=== PATIENT | male | born 1935 | race Caucasian/White ===

== ENCOUNTER 2021-06-16 20:31 | Observation (INO) | payer MEDICARE ==
[2021-06-16 21:51] LABS: Basophils % (A) 0 %; Eosinophils # (A) 0.3 k/uL (0-0.7); Eosinophils % (A) 4 %; HCT 33.9 % (39.0-53.0); HGB 11.5 gm/dL (13.0-17.5); Lymphocytes % (A) 14 %; Mean Platelet Volume 7.7; Monocytes # (A) 0.4 k/uL (0-1.0); Monocytes % (A) 6 %; Neutrophils # (A) 5.1 k/uL (1.3-7.7); Neutrophils % (A) 74 %; Platelet Count 292 k/uL (150-450); RBC 3.73 m/uL (4.30-5.90); RDW 13.5 % (11.5-15.5); WBC 6.9 k/uL (3.8-10.6)
[2021-06-16 22:02] LABS: Albumin 3.9 g/dL (3.5-5.0); Calcium 9.1 mg/dL (8.4-10.2); Magnesium 1.9 mg/dL (1.6-2.3); Total Bilirubin 0.6 mg/dL (0.2-1.3); Total Protein 6.6 g/dL (6.3-8.2)
[2021-06-16] MEDS ORDERED: DIAZEPAM 5 MG/ML 2 ML INJ IVP STA (22:07)
[2021-06-16] MEDS ORDERED: ACETAMINOPHEN TAB 500 MG TAB PO STA (22:07)
[2021-06-16 22:29] LABS: Partial Thromboplastin Time 26.6 sec (22.0-30.0); Prothrombin Time 10.5 sec (9.0-12.0)
--- NOTE | 2021-06-16 23:01 | XR ---
EXAMINATION TYPE: XR chest 2V DATE OF EXAM: 06/16/2021 COMPARISON: NONE HISTORY: Chest pain TECHNIQUE: 2 views FINDINGS: Heart and mediastinum are normal. Lungs are clear. Diaphragm is normal. Bony thorax is norm al. Thoracic aorta is atheromatous. IMPRESSION: No active cardiopulmonary disease. Normal heart.
[2021-06-16] MEDS ORDERED: NALOXONE 0.4 MG/ML 1 ML VIAL IV PRN (23:30)
--- NOTE | 2021-06-16 23:30 | ED ---
Chest Pain HPI - General Chief Complaint: Chest Pain Stated Complaint: Chest pain Source: patient, EMS Mode of arrival: EMS Limitations: no limitations - History of Present Illness Initial Comments: 86-year-old male presents emergency Department with reported chest discomfort. States that he recently saw his primary care physician within the past day as he was concerned about palpitations. He did find that his heart rate was high around 110 and his primary care doctor started him on propranolol 60 mg. Patient started taking the medications yesterday. He then began having bradycardia with heart rates in the 50s. Patient felt as if she was having an irregular heart rhythm and therefore called EMS. They found the patient to be in a bigeminy rhythm. He denies previous history of dysrhythmias. States that he had a heart cath approximate 5 years ago at [facility] and was found to have approximately 30% occlusion. He denies ripping or tearing satiety was back. No fevers, chills or cough. No abdominal pain. 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 - Related Data Home Medications Medication Instructions Recorded Confirmed Acetaminophen [Tylenol] 500 mg PO Q4H PRN 06/16/21 06/16/21 Albuterol Inhaler [Ventolin Hfa 2 puff INHALATION RT-QID 06/16/21 06/16/21 Inhaler] Ascorbic Acid [Vitamin C] 500 mg PO DAILY@79906/16/21 06/16/21 Baclofen 10 mg PO QID PRN 06/16/21 06/16/21 Bimatoprost [Lumigan .01% Ophth 1 drop BOTH EYES DAILY@79906/16/21 06/16/21 Soln] Ciprofloxacin HCl [Ciloxan 0.3%] 2 drops LEFT EAR BID@799,199906/16/21 06/16/21 Citalopram Hydrobromide 10 mg PO DAILY@79906/16/21 06/16/21 Clindamycin Phosphate 1 applic TOPICAL BID PRN 06/16/21 06/16/21 Diltiazem HCl 120 mg PO DAILY@79906/16/21 06/16/21 Docusate Sodium [Dok] 100 mg PO DAILY@79906/16/21 06/16/21 Doxycycline Hyclate 100 mg PO BID@06/16/21 06/16/21 Ferrous Sulfate [Feosol] 325 mg PO DAILY@0800 06/16/21 06/16/21 Levothyroxine Sodium [Synthroid] 50 mcg PO DAILY@79906/16/21 06/16/21 Losartan Potassium 50 mg PO BID@0800,199906/16/21 06/16/21 Magnesium Oxide 200 mg PO DAILY@0806/16/21 06/16/21 Meclizine HCl 25 mg PO DAILY PRN 06/16/21 06/16/21 Multivitamins, Thera [Multivitamin 1 tab PO DAILY@0806/16/21 06/16/21 (formulary)] Nystatin 100,000 Unit/gm Powd 1 applic TOPICAL BID PRN 06/16/21 06/16/21 [Mycostatin Powder] Omeprazole 20 mg PO DAILY@0806/16/21 06/16/21 Propranolol HCl [Propranolol HCl 60 mg PO DAILY@79906/16/21 06/16/21 ER] Sennosides/Docusate Sodium [Senna 2 tab PO DAILY PRN 06/16/21 06/16/21 Plus 8.6-50 mg Tablet] Tiotropium 2.5 Mcg/Puff [Spiriva 2 puff INHALATION RT-DAILY@79906/16/21 06/16/21 Respimat 2.5 Mcg] Allergies Allergy/AdvReac Type Severity Reaction Status Date / Time codeine AdvReac Itching Verified 06/16/21 23:23 morphine AdvReac Itching Verified 06/16/21 23:23 Review of Systems ROS Statement: Those systems with pertinent positive or pertinent negative responses have been documented in the HPI. ROS Other: All systems not noted in ROS Statement are negative. EKG Findings - EKG Comments: EKG Findings:: EKG done at 2043 demonstrates a normal sinus rhythm with a rate of 68. NV interval 176. QRS 85. QTC 382. No acute ST segment elevations or depressions. Repeat EKG at 2052 demonstrates sinus rhythm with frequent PVCs in a bigeminy rhythm. No acute ST segment elevation. No signs of high degree block. Past Medical History History of Any Multi-Drug Resistant Organisms: None Reported Additional Past Surgical History / Comment(s): Spine fusion Smoking Status: Former smoker Past Alcohol Use History: None Reported Past Drug Use History: None Reported General Exam Limitations: no limitations Course Vital Signs 06/16/21 06/16/21 06/16/21 20:33 22:41 23:41 Temperature 98.1 F Pulse Rate 48 L 67 69 Respiratory 18 18 18 Rate Blood Pressure 179/68 137/75 116/65 O2 Sat by Pulse 97 97 98 Oximetry Chest Pain MDM - MDM Upon arrival patient was placed into room 4. He is placed on continuous pulse ox and cardiac monitoring. IV access established laboratory studies were conducted. Troponin is negative. Chest x-ray demonstrates no acute process. Patient does have a persistent heart rate in the 60s which demonstrates a bigeminy rhythm. Did recommend admission for cardiology consultation for which the patient did agree to. Spoke with Dr. Brandon who agreed to admit the patient. He is currently awaiting a bed on the floor Disposition Clinical Impression: Chest pain, Bigeminal rhythm Disposition: ADMITTED IP TO THIS HOSP Condition: Stable Is patient prescribed a controlled substance at d/c from ED?: No Decision to Admit Reason: Admit from EC Decision Date: 06/16/21 Decision Time: 23:30
[2021-06-17] MEDS ORDERED: BACLOFEN 10 MG TAB PO STA (00:20)
[2021-06-17] MEDS ORDERED: HYDROcodone/APAP 7.5-325MG 1 EACH TAB PO ONE (00:48)
[2021-06-17] MEDS: SODIUM CHLORIDE 0.9% 1,000 ML IV SCH ×2 (01:21→21:05)
[2021-06-17] MEDS ORDERED: NON FORMULARY DRUG (Clindamycin Phosphate [Clindamycin Phosphate] 30 ML Solution) TOPICAL PRN (02:29)
[2021-06-17] MEDS ORDERED: MECLIZINE 25 MG TAB PO PRN (02:29)
[2021-06-17] MEDS ORDERED: SENNOSIDES-DOCUSATE SODIUM 1 EACH TAB PO PRN (02:29)
[2021-06-17 03:46] LABS: Basophils % (A) 0 %; Eosinophils # (A) 0.3 k/uL (0-0.7); Eosinophils % (A) 5 %; HCT 32.2 % (39.0-53.0); HGB 10.7 gm/dL (13.0-17.5); Lymphocytes # (A) 1.1 k/uL (1.0-4.8); Lymphocytes % (A) 19 %; MCH 30.5 pg (25.0-35.0); MCHC 33.2 g/dL (31.0-37.0); MCV 91.9 fL (80.0-100.0); Mean Platelet Volume 8.4; Monocytes # (A) 0.5 k/uL (0-1.0); Monocytes % (A) 7 %; Neutrophils # (A) 4.1 k/uL (1.3-7.7); Neutrophils % (A) 66 %; Platelet Count 251 k/uL (150-450); WBC 6.2 k/uL (3.8-10.6)
[2021-06-17 04:07] LABS: Calcium 8.8 mg/dL (8.4-10.2); Potassium 4.7 mmol/L (3.5-5.1)
[2021-06-17] MEDS: PANTOPRAZOLE 40 MG TABLET PO SCH (06:19)
[2021-06-17] MEDS: LEVOTHYROXINE 50 MCG TAB PO SCH (06:19)
[2021-06-17] MEDS: ALBUTEROL NEBULIZED 2.5 MG/3 ML INHALATION SCH ×4 (08:04→19:50)
[2021-06-17] MEDS: LOSARTAN 50 MG TAB PO SCH ×2 (08:04→19:30)
[2021-06-17] MEDS: ASCORBIC ACID 500 MG TAB PO SCH (08:04)
[2021-06-17] MEDS: DOCUSATE 100 MG CAP PO SCH (08:04)
[2021-06-17] MEDS: IPRATROPIUM 0.5 MG/2.5 ML NEBU INHALATION SCH ×4 (08:04→19:51)
[2021-06-17] MEDS: MULTIVITAMINS, THERA 1 EACH TAB PO SCH (08:05)
[2021-06-17] MEDS: BACLOFEN 10 MG TAB PO PRN ×2 (08:05→18:23)
[2021-06-17] MEDS: LATANOPROST 0.005% OPHTH DROPS 2.5 ML BTL BOTH EYES SCH (08:06)
[2021-06-17] MEDS: CIPROFLOXACIN 0.3% OPHTH SOLN 5 ML BTL LEFT EAR SCH ×2 (08:06→19:31)
[2021-06-17] MEDS ORDERED: DILTIAZEM ORAL 60 MG TAB PO SCH (09:00)
--- NOTE | 2021-06-17 09:40 | ECHOF ---
Referral Reason:LV function MEASUREMENTS -------- HEIGHT: 172.7 cm WEIGHT: 77.1 kg BP: IVSd: 0.9 cm (0.6 - 1.1) LVIDd: 4.1 cm (3.9 - 5.3) LVPWd: 1.1 cm (0.6 - 1.1) IVSs: 1.5 cm LVIDs: 2.4 cm LVPWs: 1.7 cm Ao Diam: 3.5 cm (2.0 - 3.7) AV Cusp: 1.5 cm (1.5 - 2.6) LA Diam: 3.6 cm (2.7 - 3.8) MV EXCURSION: 14.230 mm (> 18.000) MV EF SLOPE: 74 mm/s (70 - 150) EPSS: 1.7 cm MV E Ulysses: 0.74 m/s MV DecT: 354 ms MV A Ulysses: 0.89 m/s MV E/A Ratio: 0.83 RAP: 15.00 mmHg RVSP: 28.74 mmHg FINDINGS -------- This was a technically adequate study. The left ventricular size is normal. Left ventricular wall thickness is normal. Overall left vent ricular systolic function is normal with, an EF between 55 - 60 %. The right ventricle is normal in size. The left atrial size is normal. The right atrial size is normal. Aortic valve is trileaflet and is mildly thickened. The mitral valve is normal. The mitral valve leaflets are mildly thickened. Mild mitral annular c alcification present. There is trace mitral regurgitation. The tricuspid valve appears structurally normal. Trace tricuspid regurgitation present. Right kay tricular systolic pressure is normal at < 35 mmHg. The pulmonic valve was not well visualized. The aortic root size is normal. The inferior vena cava is mildly dilated. There is no pericardial effusion. CONCLUSIONS -------- 1. The left ventricular size is normal. 2. Left ventricular wall thickness is normal. 3. Overall left ventricular systolic function is normal with, an EF between 55 - 60 %. 4. Aortic valve is trileaflet and is mildly thickened. 5. The mitral valve leaflets are mildly thickened. 6. Mild mitral annular calcification present. 7. There is trace mitral regurgitation. 8. Trace tricuspid regurgitation present. 9. The inferior vena cava is mildly dilated. 10. There is no pericardial effusion. PLOW HOLDER: Angeline Bledsoe RDCS
--- NOTE | 2021-06-17 10:28 | P.CRDCN ---
History of Present Illness Consult date: 06/17/21 History of present illness: HISTORY OF PRESENT ILLNESS: This is a 86-year-old male with a past medical history significant for hypothyroidism, hypertension, and GERD. Patient does not follow with a test developer. We have been asked to see the patient in consultation for palpitations. Patient examined at the bedside. Patient states he has been h aving some palpitations recently. He states he went to see his primary care doctor 2 days ago and was started on Inderal yesterday. He reports yesterday he felt very weak and dizzy and came to the hospital. Patient was found to be sinus mechanism with PVCs and what appeared to be bigeminy. She denies having any chest pain or pressure. He denies any shortness of breath. Telemetry this morning reveals sinus mechanism. Patient reports having a cardiac catheterization about 45 years ago and was found to have a 30% lesion of one of his vessels, exact details are unknown. * EKG reveals sinus mechanism with frequent PVCs * Chest xray negative for acute process * Laboratory data: WBC 6.2. Hemoglobin 10.7. Platelet count 251. Sodium 129. Potassium 4.7. BUN 33. Creatinine 1.36. Troponin negative 3 * Current home cardiac medications include propanolol 60 mg daily, losartan 50 mg twice a day, diltiazem 120 mg daily * Echocardiogram completed revealing ejection fraction 55-60%, trace MR, trace TR REVIEW OF SYSTEMS: At the time of my exam: CONSTITUTIONAL: Denies fever or chills. HEENT: Denies blurred vision, vision changes, or eye pain. Denies hemoptysis CARDIOVASCULAR: Denies chest pain. Denies orthopnea. Denies PND. Denies palpitations RESPIRATORY: Denies shortness of breath. GASTROINTESTINAL: Denies abdominal pain. Denies nausea or vomiting. HEMATOLOGIC: Denies bleeding disorders. GENITOURINARY: Denies any blood in urine. SKIN: Denies pruitis. Denies rash. PHYSICAL EXAM: VITAL SIGNS: Reviewed. GENERAL: Well-developed in no acute distress. HEENT: Head is normocephalic. Pupils are equal, round. Sclerae anicteric. Mucous membranes of the mouth are moist. Neck supple. No JVD or thyromegaly LUNGS: Respirations even and unlabored. Lungs essentially clear to auscultation bilaterally. HEART: Regular rate and rhythm. S1 and S2 heard. ABDOMEN: Soft. Nondistended. Nontender. EXTREMITIES: Normal range of motion. No clubbing or cyanosis. Peripheral pulses intact. No lower extremity edema NEUROLOGIC: Awake and alert. Oriented x 3. ASSESSMENT: Chest pain, ruled out, patient denies having chest pain Palpitations Frequent PVCs and bigeminy Nonobstructive coronary artery disease Hypertension Hypothyroidism GERD PLAN: 2D echo obtained and reviewed DC Cardizem and propanolol Begin metoprolol succinate 25 mg starting tomorrow morning Continue to monitor patient on telemetry overnight and possible discharge tomorrow Nurse practitioner note has been reviewed by physician. Signing provider agrees with the documented findings, assessment, and plan of care. Past Medical History History of Any Multi-Drug Resistant Organisms: None Reported Additional Past Surgical History / Comment(s): Spine fusion Smoking Status: Former smoker Past Alcohol Use History: None Reported Past Drug Use History: None Reported Medications and Allergies Home Medications Medication Instructions Recorded Confirmed Type Acetaminophen [Tylenol] 500 mg PO Q4H PRN 06/16/21 06/16/21 History Albuterol Inhaler [Ventolin Hfa 2 puff INHALATION RT-QID 06/16/21 06/16/21 Histo ry Inhaler] Ascorbic Acid [Vitamin C] 500 mg PO DAILY@0806/16/21 06/16/21 History Baclofen 10 mg PO QID PRN 06/16/21 06/16/21 History Bimatoprost [Lumigan .01% Ophth 1 drop BOTH EYES DAILY@0800 06/16/21 06/16/21 History Soln] Ciprofloxacin HCl [Ciloxan 0.3%] 2 drops LEFT EAR BID@06/16/21 06/16/21 History Citalopram Hydrobromide 10 mg PO DAILY@0800 06/16/21 06/16/21 History Clindamycin Phosphate 1 applic TOPICAL BID PRN 06/16/21 06/16/21 History Diltiazem HCl 120 mg PO DAILY@0806/16/21 06/16/21 History Docusate Sodium [Dok] 100 mg PO DAILY@0800 06/16/21 06/16/21 History Doxycycline Hyclate 100 mg PO BID@06/16/21 06/16/21 History Ferrous Sulfate [Feosol] 325 mg PO DAILY@0800 06/16/21 06/16/21 History Levothyroxine Sodium [Synthroid] 50 mcg PO DAILY@0806/16/21 06/16/21 History Losartan Potassium 50 mg PO BID@06/16/21 06/16/21 History Magnesium Oxide 200 mg PO DAILY@0800 06/16/21 06/16/21 History Meclizine HCl 25 mg PO DAILY PRN 06/16/21 06/16/21 History Multivitamins, Thera [Multivitamin 1 tab PO DAILY@0806/16/21 06/16/21 History (formulary)] Nystatin 100,000 Unit/gm Powd 1 applic TOPICAL BID PRN 06/16/21 06/16/21 History [Mycostatin Powder] Omeprazole 20 mg PO DAILY@0806/16/21 06/16/21 History Propranolol HCl [Propranolol HCl 60 mg PO DAILY@0806/16/21 06/16/21 History ER] Sennosides/Docusate Sodium [Senna 2 tab PO DAILY PRN 06/16/21 06/16/21 History Plus 8.6-50 mg Tablet] Tiotropium 2.5 Mcg/Puff [Spiriva 2 puff INHALATION RT-DAILY@79906/16/21 06/16/21 History Respimat 2.5 Mcg] Allergies Allergy/AdvReac Type Severity Reaction Status Date / Time codeine AdvReac Itching Verified 06/16/21 23:23 morphine AdvReac Itching Verified 06/16/21 23:23 Physical Exam Vitals: Vital Signs Temp Pulse Pulse Resp BP BP Pulse Ox 06/17/21 08:26 64 06/17/21 08:05 64 06/17/21 07:00 97.8 F 60 18 165/71 98 06/17/21 06:17 53 L 16 94/57 99 06/17/21 03:20 70 18 122/77 96 06/16/21 23:41 69 18 116/65 98 06/16/21 22:41 67 18 137/75 97 06/16/21 20:33 98.1 F 48 L 18 179/68 97 Intake and Output 06/16/21 06/17/21 06/17/21 22:59 06:59 14:59 Other: Weight 77.111 kg Results 06/17/21 03:20 06/17/21 03:20 Cardiac Enzymes 06/16/21 06/16/21 06/17/21 Range/Units 21:40 21:40 00:49 AST 25 (17-59) U/L Troponin I <0.012 <0.012 (0.000-0.034) ng/mL 06/17/21 Range/Units 03:20 AST (17-59) U/L Troponin I <0.012 (0.000-0.034) ng/mL Coagulation 06/16/21 Range/Units 21:40 PT 10.5 (9.0-12.0) sec APTT 26.6 (22.0-30.0) sec CBC 06/16/21 06/17/21 Range/Units 21:40 03:20 WBC 6.9 6.2 (3.8-10.6) k/uL RBC 3.73 L 3.50 L (4.30-5.90) m/uL Hgb 11.5 L 10.7 L (13.0-17.5) gm/dL Hct 33.9 L 32.2 L (39.0-53.0) % Plt Count 292 251 (150-450) k/uL Comprehensive Metabolic Panel 06/16/21 06/17/21 Range/Units 21:40 03:20 Sodium 130 L 129 L (137-145) mmol/L Potassium 5.0 4.7 (3.5-5.1) mmol/L Chloride 99 99 (98-107) mmol/L Carbon Dioxide 22 23 (22-30) mmol/L BUN 32 H 33 H (9-20) mg/dL Creatinine 1.29 H 1.36 H (0.66-1.25) mg/dL Glucose 113 H 109 H (74-99) mg/dL Calcium 9.1 8.8 (8.4-10.2) mg/dL AST 25 (17-59) U/L ALT 19 (4-49) U/L Alkaline Phosphatase 57 (38-126) U/L Total Protein 6.6 (6.3-8.2) g/dL Albumin 3.9 (3.5-5.0) g/dL Current Medications Generic Name Dose Route Start Last Admin Trade Name Freq PRN Reason Stop Dose Admin Acetaminophen 500 mg 06/17/21 02:29 Acetaminophen Tab 500 Mg Tab PO Q4H PRN Pain Albuterol Sulfate 2.5 mg 06/17/21 08:00 06/17/21 08:04 Albuterol Nebulized 2.5 Mg/3 Ml INHALATION 2.5 mg RT-QID IRVIN Administration Ascorbic Acid 500 mg 06/17/21 09:00 06/17/21 08:04 Ascorbic Acid 500 Mg Tab PO 500 mg DAILY IRVIN Administration Baclofen 10 mg 06/17/21 02:29 06/17/21 08:05 Baclofen 10 Mg Tab PO 10 mg QID PRN Administration Muscle Pain Ciprofloxacin 2 drops 06/17/21 09:00 06/17/21 08:06 Ciprofloxacin 0.3% Ophth Soln 5 Ml Btl LEFT EAR 2 drops BID [facility] Administration Citalopram Hydrobromide 10 mg 06/17/21 09:00 Citalopram Hydrobromide 10 Mg Tab PO DAILY [facility] Docusate Sodium 100 mg 06/17/21 09:00 06/17/21 08:04 Docusate 100 Mg Cap PO Not Given DAILY [facility] Doxycycline Monohydrate 100 mg 06/17/21 09:00 Doxycycline 100 Mg Cap PO 06/23/21 21:01 BID [facility] Ferrous Sulfate 325 mg 06/17/21 11:00 Ferrous Sulfate 325 Mg Tab PO DAILY@1100 [facility] Sodium Chloride 1,000 mls @ 50 mls/hr 06/16/21 23:45 06/17/21 01:21 Saline 0.9% IV 50 mls/hr .Q20H IRVIN Administration Ipratropium [place] 0.5 mg 06/17/21 08:00 06/17/21 08:04 Ipratropium 0.5 Mg/2.5 Ml Nebu INHALATION 0.5 mg RT-QID IRVIN Administration Latanoprost 1 drops 06/17/21 09:00 06/17/21 08:06 Latanoprost 0.005% Ophth Drops 2.5 Ml Btl BOTH EYES 1 drops DAILY IRVIN Administration Levothyroxine Sodium 50 mcg 06/17/21 06:30 06/17/21 06:19 Levothyroxine 50 Mcg Tab PO 50 mcg DAILY@0630 [facility] Administration Losartan Potassium 50 mg 06/17/21 09:00 06/17/21 08:04 Losartan 50 Mg Tab PO 50 mg BID IRVIN Administration Magnesium Oxide 200 mg 06/17/21 11:00 Magnesium Oxide 400 Mg Tab PO DAILY@1100 [facility] Meclizine HCl 25 mg 06/17/21 02:29 Meclizine 25 Mg Tab PO DAILY PRN DIZZINESS Metoprolol Succinate 25 mg 06/18/21 09:00 Metoprolol Succinate (Er) 25 Mg Tab.Er.24h PO DAILY [facility] Multivitamins 1 each 06/17/21 09:00 06/17/21 08:05 Multivitamins, Thera 1 Each Tab PO 1 each DAILY [facility] Administration Naloxone HCl 0.2 mg 06/16/21 23:30 Naloxone 0.4 Mg/Ml 1 Ml Vial IV Q2M PRN Opioid Reversal Non-Formulary Medication 1 applic 06/17/21 02:29 Clindamycin Phosphate [Clindamycin Phosphate] TOPICAL BID PRN Skin Irritation Pantoprazole Sodium 40 mg 06/17/21 07:30 06/17/21 06:19 Pantoprazole 40 Mg Tablet PO 40 mg [id number] [facility] Administration Senna/Docusate Sodium 2 each 06/17/21 02:29 Sennosides-Docusate Sodium 1 Each Tab PO DAILY PRN Constipation Intake and Output 06/16/21 06/17/21 06/17/21 22:59 06:59 14:59 Other: Weight 77.111 kg 06/17/21 03:20 06/17/21 03:20
[2021-06-17] MEDS: DOXYCYCLINE 100 MG CAP PO SCH ×2 (11:18→19:30)
[2021-06-17] MEDS: CITALOPRAM HYDROBROMIDE 10 MG TAB PO SCH (11:18)
[2021-06-17] MEDS: MAGNESIUM OXIDE 400 MG TAB PO SCH (12:35)
[2021-06-17] MEDS: FERROUS SULFATE 325 MG TAB PO SCH (12:35)
[2021-06-17] MEDS: ACETAMINOPHEN TAB 500 MG TAB PO PRN (12:35)
--- NOTE | 2021-06-17 14:25 | P.HPIM ---
History of Present Illness Chief Complaint: Chest pain Patient is a 86-year-old male with a past medical history significant for hyperthyroidism, essential hypertension, GERD, MS that presents to the hospital complaining of chest pain. Patient states that currently his chest pain is resolved however it was not pressure or sharp like but he described as "gas". He denies any radiation to the left arm or to the jaw. He denies any constitutional symptoms including fever, chills, nausea or vomiting. Patient was admitted to the hospital for chest pain. He has been evaluated by cardiology team that have ordered workup including 2-D echocardiogram and cardiac troponin. Past Medical History History of Any Multi-Drug Resistant Organisms: None Reported Additional Past Surgical History / Comment(s): Spine fusion Smoking Status: Former smoker Past Alcohol Use History: None Reported Past Drug Use History: None Reported Medications and Allergies Home Medications Medication Instructions Recorded Confirmed Type Acetaminophen [Tylenol] 500 mg PO Q4H PRN 06/16/21 06/16/21 History Albuterol Inhaler [Ventolin Hfa 2 puff INHALATION RT-QID 06/16/21 06/16/21 History Inhaler] Ascorbic Acid [Vitamin C] 500 mg PO DAILY@0800 06/16/21 06/16/21 History Baclofen 10 mg PO QID PRN 06/16/21 06/16/21 History Bimatoprost [Lumigan .01% Ophth 1 drop BOTH EYES DAILY@0800 06/16/21 06/16/21 History Soln] Ciprofloxacin HCl [Ciloxan 0.3%] 2 drops LEFT EAR BID@08,199906/16/21 06/16/21 History Citalopram Hydrobromide 10 mg PO DAILY@79906/16/21 06/16/21 History Clindamycin Phosphate 1 applic TOPICAL BID PRN 06/16/21 06/16/21 History Diltiazem HCl 120 mg PO DAILY@79906/16/21 06/16/21 History Docusate Sodium [Dok] 100 mg PO DAILY@0806/16/21 06/16/21 History Doxycycline Hyclate 100 mg PO BID@08,199906/16/21 06/16/21 History Ferrous Sulfate [Feosol] 325 mg PO DAILY@79906/16/21 06/16/21 History Levothyroxine Sodium [Synthroid] 50 mcg PO DAILY@0800 06/16/21 06/16/21 History Losartan Potassium 50 mg PO BID@08,199906/16/21 06/16/21 History Magnesium Oxide 200 mg PO DAILY@0800 06/16/21 06/16/21 History Meclizine HCl 25 mg PO DAILY PRN 06/16/21 06/16/21 History Multivitamins, Thera [Multivitamin 1 tab PO DAILY@0800 06/16/21 06/16/21 History (formulary)] Nystatin 100,000 Unit/gm Powd 1 applic TOPICAL BID PRN 06/16/21 06/16/21 History [Mycostatin Powder] Omeprazole 20 mg PO DAILY@0800 06/16/21 06/16/21 History Propranolol HCl [Propranolol HCl 60 mg PO DAILY@0800 06/16/21 06/16/21 History ER] Sennosides/Docusate Sodium [Senna 2 tab PO DAILY PRN 06/16/21 06/16/21 History Plus 8.6-50 mg Tablet] Tiotropium 2.5 Mcg/Puff [Spiriva 2 puff INHALATION RT-DAILY@0806/16/2106/16 History Respimat 2.5 Mcg] Allergies Allergy/AdvReac Type Severity Reaction Status Date / Time codeine AdvReac Itching Verified 06/16/21 23:23 morphine AdvReac Itching Verified 06/16/21 23:23 Physical Exam Vitals: Vital Signs Temp Pulse Pulse Resp BP BP Pulse Ox 06/17/21 08:26 64 06/17/21 08:05 64 06/17/21 07:00 97.8 F 60 18 165/71 98 06/17/21 06:17 53 L 16 94/57 99 06/17/21 03:20 70 18 122/77 96 06/16/21 23:41 69 18 116/65 98 06/16/21 22:41 67 18 137/75 97 06/16/21 20:33 98.1 F 48 L 18 179/68 97 Intake and Output 06/16/21 06/17/21 06/17/21 22:59 06:59 14:59 Intake Total 118 Output Total 500 Balance -382 Intake: Oral 118 Output: Urine 500 Straight 500 Other: Weight 77.111 kg Gen. patient is awake alert oriented 3 Respiratory normal air entry, no wheezing or rhonchi appreciated Cardio normal S1/S2 heard Abdomen soft, nontender Extremity having a hard time gripping related to his MS Extremity no pitting edema noted Results CBC & Chem 7: 06/17/21 03:20 06/17/21 03:20 Labs: Abnormal Lab Results - Last 24 Hours (Table) 06/16/21 06/16/21 06/17/21 Range/Units 21:40 21:40 03:20 RBC 3.73 L 3.50 L (4.30-5.90) m/uL Hgb 11.5 L 10.7 L (13.0-17.5) gm/dL Hct 33.9 L 32.2 L (39.0-53.0) % Sodium 130 L (137-145) mmol/L BUN 32 H (9-20) mg/dL Creatinine 1.29 H (0.66-1.25) mg/dL Glucose 113 H (74-99) mg/dL 06/17/21 Range/Units 03:20 RBC (4.30-5.90) m/uL Hgb (13.0-17.5) gm/dL Hct (39.0-53.0) % Sodium 129 L (137-145) mmol/L BUN 33 H (9-20) mg/dL Creatinine 1.36 H (0.66-1.25) mg/dL Glucose 109 H (74-99) mg/dL Assessment and Plan Assessment: Assessment: #1 chest pain rule out ACS #2 nonobstructive coronary artery disease #3 essential hypertension #4 hypothyroidism #5 GERD #6 hyponatremia most likely dehydration #7 acute kidney injury most likely prerenal asynchrony none known. Plan: -Admit to medicine for close monitoring -Aspiration/fall precaution -Obtain 2-D echocardiogram -Cardizem has been discontinued including propranolol patient started on metoprolol succinate 25 mg starting tomorrow as per cardiology -Continue monitor creatinine level daily. -I'm unclear why the patient's on doxycycline. We will also try to obtain information regarding his baseline creatinine. -Continue gentle hydration 75 mL an hour for now. -DVT prophylaxis heparin 3 times a day
[2021-06-17] MEDS ORDERED: HYDROcodone/APAP 5-325MG 1 EACH TAB PO PRN (14:51)
[2021-06-17] MEDS: HEPARIN SODIUM,PORCINE/PF 5,000 UNIT/0.5 ML SYRINGE SQ SCH (19:31)
[2021-06-17] MEDS ORDERED: methocarbamoL 500 MG TAB PO ONE (20:13)
[2021-06-17] MEDS ORDERED: IPRATROPIUM-ALBUTEROL 3 ML NEB INHALATION PRN (22:12)
[2021-06-18] MEDS: LEVOTHYROXINE 50 MCG TAB PO SCH (05:51)
[2021-06-18] MEDS: BACLOFEN 10 MG TAB PO PRN ×2 (05:52→11:36)
[2021-06-18] MEDS: PANTOPRAZOLE 40 MG TABLET PO SCH (06:51)
[2021-06-18] MEDS: ACETAMINOPHEN TAB 500 MG TAB PO PRN ×2 (06:51→11:00)
[2021-06-18] MEDS: IPRATROPIUM-ALBUTEROL 3 ML NEB INHALATION SCH ×2 (07:03→10:48)
[2021-06-18 08:02] VITALS: BP 150/72; RESP 16; TEMP 97.4
[2021-06-18] MEDS: HEPARIN SODIUM,PORCINE/PF 5,000 UNIT/0.5 ML SYRINGE SQ SCH (08:13)
[2021-06-18] MEDS: LOSARTAN 50 MG TAB PO SCH (08:13)
[2021-06-18] MEDS: DOXYCYCLINE 100 MG CAP PO SCH (08:13)
[2021-06-18] MEDS: CITALOPRAM HYDROBROMIDE 10 MG TAB PO SCH (08:13)
[2021-06-18] MEDS: MULTIVITAMINS, THERA 1 EACH TAB PO SCH (08:13)
[2021-06-18] MEDS: ASCORBIC ACID 500 MG TAB PO SCH (08:13)
[2021-06-18] MEDS: LATANOPROST 0.005% OPHTH DROPS 2.5 ML BTL BOTH EYES SCH (08:14)
[2021-06-18] MEDS: DOCUSATE 100 MG CAP PO SCH (08:14)
[2021-06-18] MEDS: CIPROFLOXACIN 0.3% OPHTH SOLN 5 ML BTL LEFT EAR SCH (08:14)
[2021-06-18 08:37] LABS: Basophils # (A) 0.02 X 10*3/uL (0.00-0.10); Basophils % (A) 0.3 %; Eosinophils # (A) 0.23 X 10*3/uL (0.04-0.35); Eosinophils % (A) 3.6 %; HCT 33.9 % (39.6-50.0); HGB 11.1 g/dL (13.0-17.0); Immature Grans, Automated 0.2 %; Lymphocytes # (A) 0.96 X 10*3/uL (0.90-5.00); Lymphocytes % (A) 15.1 %; MCH 29.5 pg (27.0-32.0); MCHC 32.7 g/dL (32.0-37.0); MCV 90.2 fL (80.0-97.0); Mean Platelet Volume 10.5 fL (9.5-12.2); Monocytes # (A) 0.57 X 10*3/uL (0.20-1.00); Monocytes % (A) 8.9 %; NRBC Per 100 WBC 0 /100 WBCS (0.0-0.0); Neutrophils # (A) 4.58 X 10*3/uL (1.80-7.70); Neutrophils % (A) 71.9 %; Platelet Count 266 X 10*3/uL (140-440); RBC 3.76 X 10*6/uL (4.40-5.60); RDW 12.9 % (11.5-14.5); WBC 6.37 X 10*3/uL (4.50-10.00)
[2021-06-18 08:50] LABS: African American GFR (CKD) 58.1 (60.0-200.0); BUN/Creat Ratio 21.54 Ratio (12.00-20.00); Calcium 9.2 mg/dL (8.7-10.3); Non-African American GFR(CKD) 50.1 (60.0-200.0); Phosphorus 3.4 mg/dL (2.4-5.1); Potassium 4.7 mmol/L (3.5-5.5)
[2021-06-18] MEDS ORDERED: METOPROLOL SUCCINATE (ER) 25 MG TAB.ER.24H PO SCH (09:00)
--- NOTE | 2021-06-18 10:42 | P.PN ---
Subjective Progress Note Date: 06/18/21 This is a pleasant 86-year-old gentleman with a past medical history significant for hypothyroidism, MS, hypertension, and GERD. He has a history of left carotid endarterectomy about a year ago at [facility] as well as cardiac catheterization done about 4-5 years ago at which time he was told he had a 30% lesion of one of his vessels but the exact details are unknown. Patient does not follow with a rn transfer. We were asked to see the patient in consultation for palpitations. He had been having some palpitations recently and was started on Inderal by his PCP. He reported to the Emergency Department due to feeling very weak and dizzy. Patient was found to be sinus mechanism with Bigeminal PVCs. He denied having any chest pain or pressure. He denied any shortness of breath. Echocardiogram with Doppler study revealed an ejection fraction of 55- 60% with trace MR and TR. 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 Overall this morning he is feeling a bit better. He denies any complaints of dizziness or weakness. His main complaint is issues with his MS that started a couple of weeks ago he's having difficulties feeding himself and struggling more to take care of himself. According to him he is requiring more care at the assisted living. He is tolerating the metoprolol succinate 25 mg by mouth daily along with his home dose of losartan 50 mg by mouth twice a day. Labs this morning showed a hemoglobin of 10.7, sodium 129, BUN 33 and creatinine 1.36. His TSH is normal. Objective - Vital Signs Vital signs: Vital Signs Temp 97.4 F L 06/18/21 07:00 Pulse 68 06/18/21 07:16 Resp 16 06/18/21 07:00 BP 150/72 06/18/21 07:00 Pulse Ox 96 06/18/21 07:00 Intake & Output 06/17/21 06/18/21 06/18/21 18:59 06:59 18:59 Intake Total 118 Output Total 500 1040 Balance -382 -1040 Intake: Oral 118 Output: Urine 500 1040 Straight 500 520 Other: Voiding Method Self-Catheterization Self-Catheterization # Voids 0 0 # Bowel Movements 0 - Exam GENERAL: Well-developed in no acute distress. HEENT: Head is normocephalic. Pupils are equal, round. Sclerae anicteric. Mucous membranes of the mouth are moist. Neck supple. No JVD. LUNGS: Respirations even and unlabored. Lungs clear to auscultation bilaterally. HEART: Regular rate and rhythm with occasional extrasystole noted. S1 and S2 heard. No murmur, rub or gallop. ABDOMEN: Soft. Nondistended. Nontender. EXTREMITIES: No clubbing or cyanosis. Peripheral pulses intact. No edema NEUROLOGIC: Awake and alert. Oriented x 3. - Labs CBC & Chem 7: 06/18/21 06:27 06/18/21 06:27 Assessment and Plan Assessment: #1 palpitations, improved #2 frequent PVCs with bigeminy, improved #3 history of nonobstructive CAD #4 hypertension #5 hypothyroidism #6 GERD #7 status post carotid endarterectomy Plan: From cardiology's perspective medications were reviewed and we will continue the same. From our standpoint the patient is stable for discharge. He will follow- up in the office with Dr. GAURI Pineda. The above dictated assessment and findings were discussed with signing physician. The impression and plan of care have been directed as dictated. Melissa Olmstead, Nurse Practitioner, acting as scribe for signing physician.
[2021-06-18 10:50] VITALS: PULSE 69
[2021-06-18] MEDS: FERROUS SULFATE 325 MG TAB PO SCH (10:59)
[2021-06-18] MEDS: MAGNESIUM OXIDE 400 MG TAB PO SCH (10:59)
--- NOTE | 2021-06-18 13:41 | P.DS ---
Providers Date of admission: 06/16/21 23:31 Attending physician: Zoie Newby MD Consults: 06/16/21 23:32 Consult Physician Urgent Consulting Provider: [facility] Consult Reason/Comments: acute chest pain, acute palpitations Do you want consulting provider notified?: Yes Primary care physician: Shai Peguero MD Hospital Course: Patient is a 86-year-old male with a past medical history significant for hyperthyroidism, essential hypertension, GERD, MS that presents to the hospital complaining of chest pain. Patient states that currently his chest pain is resolved however it was not pressure or sharp like but he described as "gas". He denies any radiation to the left arm or to the jaw. He denies any constitutional symptoms including fever, chills, nausea or vomiting. Patient was admitted to the hospital for chest pain. He has been evaluated by cardiology team that have ordered workup including 2-D echocardiogram and cardiac troponin. Patient has been evaluated by cardiology at this time recommending to be discharge home. She is a dictation fraction 55-60%, sodium levels are trending up 1:30 and creatinine level has also normalized at 1.3. Patient denies any active chest pain, shortness of breath or palpitations during my examination. Patient is to be discharged from cardiology's perspective case discussed with RN present at bedside. Patient Condition at Discharge: Stable Plan - Discharge Summary Discharge Rx Participant: No New Discharge Prescriptions: New Metoprolol Succinate (ER) [Toprol XL] 25 mg PO DAILY 30 Days #30 Continue Nystatin 100,000 Unit/gm Powd [Mycostatin Powder] 1 applic TOPICAL BID PRN PRN Reason: Skin Irritation Meclizine HCl 25 mg PO DAILY PRN PRN Reason: DIZZINESS Clindamycin Phosphate 1 applic TOPICAL BID PRN PRN Reason: Skin Irritation Baclofen 10 mg PO QID PRN PRN Reason: Muscle Pain Ascorbic Acid [Vitamin C] 500 mg PO DAILY@0800 Acetaminophen [Tylenol] 500 mg PO Q4H PRN PRN Reason: Pain Tiotropium 2.5 Mcg/Puff [Spiriva Respimat 2.5 Mcg] 2 puff INHALATION RT-DA LANCE@0800 Losartan Potassium 50 mg PO BID@08 Levothyroxine Sodium [Synthroid] 50 mcg PO DAILY@0800 Doxycycline Hyclate 100 mg PO BID@ Citalopram Hydrobromide 10 mg PO DAILY@0800 Albuterol Inhaler [Ventolin Hfa Inhaler] 2 puff INHALATION RT-QID Omeprazole 20 mg PO DAILY@0800 Multivitamins, Thera [Multivitamin (formulary)] 1 tab PO DAILY@0800 Magnesium Oxide 200 mg PO DAILY@0800 Bimatoprost [Lumigan .01% Ophth Soln] 1 drop BOTH EYES DAILY@0800 Ferrous Sulfate [Iron (65 MG Elemental)] 325 mg PO DAILY@0800 Docusate Sodium [Dok] 100 mg PO DAILY@0800 Ciprofloxacin HCl [Ciloxan 0.3%] 2 drops LEFT EAR BID@08,1999 Sennosides/Docusate Sodium [Senna Plus 8.6-50 mg Tablet] 2 tab PO DAILY PRN PRN Reason: Constipation Discontinued Diltiazem HCl 120 mg PO DAILY@0800 Propranolol HCl [Propranolol HCl ER] 60 mg PO DAILY@0800 Discharge Medication List Acetaminophen [Tylenol] 500 mg PO Q4H PRN 06/16/21 [History] Albuterol Inhaler [Ventolin Hfa Inhaler] 2 puff INHALATION RT-QID 06/16/21 [History] Ascorbic Acid [Vitamin C] 500 mg PO DAILY@0800 06/16/21 [History] Baclofen 10 mg PO QID PRN 06/16/21 [History] Bimatoprost [Lumigan .01% Ophth Soln] 1 drop BOTH EYES DAILY@0800 06/16/21 [History] Ciprofloxacin HCl [Ciloxan 0.3%] 2 drops LEFT EAR BID@08,199906/16/21 [History] Citalopram Hydrobromide 10 mg PO DAILY@0800 06/16/21 [History] Clindamycin Phosphate 1 applic TOPICAL BID PRN 06/16/21 [History] Docusate Sodium [Dok] 100 mg PO DAILY@0800 06/16/21 [History] Doxycycline Hyclate 100 mg PO BID@08,199906/16/21 [History] Ferrous Sulfate [Iron (65 MG Elemental)] 325 mg PO DAILY@0800 06/16/21 [History] Levothyroxine Sodium [Synthroid] 50 mcg PO DAILY@0800 06/16/21 [History] Losartan Potassium 50 mg PO BID@08,199906/16/21 [History] Magnesium Oxide 200 mg PO DAILY@0806/16/21 [History] Meclizine HCl 25 mg PO DAILY PRN 06/16/21 [History] Multivitamins, Thera [Multivitamin (formulary)] 1 tab PO DAILY@79906/16/21 [History] Nystatin 100,000 Unit/gm Powd [Mycostatin Powder] 1 applic TOPICAL BID PRN 06/16/21 [History] Omeprazole 20 mg PO DAILY@79906/16/21 [History] Sennosides/Docusate Sodium [Senna Plus 8.6-50 mg Tablet] 2 tab PO DAILY PRN 06/16/21 [History] Tiotropium 2.5 Mcg/Puff [Spiriva Respimat 2.5 Mcg] 2 puff INHALATION RT- DAILY@79906/16/21 [History] Metoprolol Succinate (ER) [Toprol XL] 25 mg PO DAILY 30 Days #30 06/18/21 [Rx] Follow up Appointment(s)/Referral(s): Shai Peguero MD [Primary Care Provider] - 1-2 days Kwaku Pineda MD [STAFF PHYSICIAN] - 1 Week Discharge Disposition: TRANSFER TO SNF/ECF
== END 2021-06-18 14:50 | disposition home or self-care (01) ==
LOC: EC 20:31 → 6NMEDSUR 23:31
PROVIDERS: ADMIT Internal Medicine; ATTEND Internal Medicine
DX: R07.89 Other chest pain (principal); I49.3 Ventricular premature depolarization; N17.9 Acute kidney failure, unspecified; I25.10 Atherosclerotic heart disease of native coronary artery without angina pectoris; R00.8 Other abnormalities of heart beat; G35 Multiple sclerosis; E03.9 Hypothyroidism, unspecified; I10 Essential (primary) hypertension; K21.9 Gastro-esophageal reflux disease without esophagitis; E87.1 Hypo-osmolality and hyponatremia; R63.30 Feeding difficulties, unspecified; Z79.890 Hormone replacement therapy; Z79.899 Other long term (current) drug therapy; Z88.5 Allergy status to narcotic agent; Z98.1 Arthrodesis status; Z87.891 Personal history of nicotine dependence; Z98.890 Other specified postprocedural states
CPT/HCPCS: 96372 ×2; 96374; 99285; 36415; 94640 ×4; 93005; 93306; 83880; 80053; 80048 ×2; 84443; 83735 ×2; 84100; 84484 ×2; 85025 ×3; 85610; 85730; 71046; G0378 ×3; J3360; J1644 ×2